=== PATIENT | female | born 1945 | race Two or more races ===

== ENCOUNTER 2017-11-26 10:24 | Outpatient (CLI) | payer MEDICARE, OTHER ==
[~2017-11-26] VITALS: Ht 152.4 cm; Wt 63.5 kg
[2017-11-26] MEDS ORDERED: DEXILANT60 MG ORAL (10:50)
[2017-11-26 10:51] VITALS: BP 113/67
--- NOTE | 2017-11-26 11:15 | GI Initial Consult Note ---
History of Present Illness General Date patient seen: Nov 26, 2017 Time patient seen: 11:11 Referring physician: REBECA Reason for Consultation: ABDOMINAL PAIN Present Illness HPI This is a 72 year old female referred by Dr. Salcido for evaluation of abdominal pain. Has complaint of epigastric, LLQ abdominal pain. History of GERD. Denies any N/V/D. States she has regular BM's. Per patient, had colonoscopy approximately [address] Pennington, findings not known at this time. Denies any unintentional weight loss or changes in dietary habits. No signs of abuse or neglect. Patient is not fall risk. Home Meds Reported Medications Dexlansoprazole (Dexilant) 60 Mg Cap., 60 MG ORAL DAILY, CAP 11/26/17 Med list reviewed/reconciled: Yes Allergies: Coded Allergies: No Known Allergies (Unverified , 11/26/17) Patient History PMH Narrative GERD No surgical history obtained. Pertinent Family History: none Social History: Reports: other - tea/coffee; Denies: smoking, alcohol use, drug use Review of Systems All Other Systems: negative except mentioned in HPI Physical Exam Vital Signs Date Time Temp Pulse Resp B/P (MAP) Pulse Ox O2 Delivery O2 Flow Rate FiO2 11/26/17 10:51 97.6 63 16 113/67 96 97.6 Sp02 EP Interpretation: reviewed, normal General Appearance: well appearing, no apparent distress, alert Head: normocephalic EENT: PERRL/EOMI, normal ENT inspection Neck: supple Respiratory: normal breath sounds, no respiratory distress Cardiovascular: normal rate Gastrointestinal: normal inspection, non tender, soft, normal bowel sounds, non -distended Rectal: deferred Genitourinary: no CVA tenderness Musculoskeletal: normal inspection, back normal Neurologic: normal inspection, alert, oriented x3, responsive Psychiatric: normal inspection, judgement/insight normal, memory normal Skin: normal inspection, normal color, no rash, warm/dry, palpation normal, well hydrated Lymphatic: normal inspection, no adenopathy GI: Plan Problems: (1) Constipated (2) GERD (gastroesophageal reflux disease) (3) Small intestinal bacterial overgrowth Plan obtain colonoscopy records from Dr. Pennington >> will follow with additional recs start PPI rx Xifaxan x1 tx for SIBO trial of #VSL #3 miralax prn Seen with Dr. Cardozo. Thank you for this patient referral. The patient was seen and examined at bedside and all new and available data was reviewed in the patients chart. I agree with the above findings, impression and plan. (Patient seen earlier today. Signature stamp does not reflect patient encounter time.). - MD Brittney MaldonadoSoutheastern [facility] JOE Nov 26, 2017 11:15
== END 2017-11-26 12:24 | disposition home or self-care (01) ==
LOC: PAN 10:24
DX: R10.9 Unspecified abdominal pain (principal); K59.00 Constipation, unspecified; K21.9 Gastro-esophageal reflux disease without esophagitis; A04.9 Bacterial intestinal infection, unspecified
CPT/HCPCS: 99212